=== PATIENT | female | born 1965 | race Caucasian/White ===

== ENCOUNTER 2021-06-21 20:03 | Emergency (ER) | payer MEDICAID ==
[~2021-06-21] VITALS: Ht 165.1 cm; Wt 71.0 kg
[2021-06-21] MEDS ORDERED: ACETAMINOPHEN 325MG TABLET PO ONE (22:15)
[2021-06-21] MEDS ORDERED: TOPUD MT (22:54)
[2021-06-22 02:22] VITALS: BP 166/96
== END 2021-06-22 01:24 | disposition home or self-care (01) ==
LOC: ER 20:03
DX: M54.89 Other dorsalgia (principal); M54.2 Cervicalgia; I10 Essential (primary) hypertension; Z88.6 Allergy status to analgesic agent; Z88.8 Allergy status to other drugs, medicaments and biological substances; V43.52XA Car driver injured in collision with other type car in traffic accident, initial encounter; Y93.89 Activity, other specified; Y92.488 Other paved roadways as the place of occurrence of the external cause
CPT/HCPCS: 72100; 81025; 99283